=== PATIENT | female | born 1970 | race Caucasian/White ===

== ENCOUNTER 2018-08-08 18:44 | Emergency (ER) | payer OTHER ==
[2018-08-08 19:28] VITALS: BP 150/87
--- NOTE | 2018-08-08 19:37 | UC ---
Eye Complaint HPI - HPI Summary HPI Summary: Pt presents with c/o right eye pain that began 1 day ago and worsened at 0300 this morning. Pt wears extended wear contacts and has had this new pair in for 3 weeks. Pt woke and took contacts out and stated that pain worsened. Pt states that "last time this happened it was a scratch on my cornea". - History of Current Complaint Chief Complaint: UCEye Stated Complaint: RT EYE COMPLAINT Time Seen by Provider: 08/08/18 19:24 Hx Obtained From: Patient Hx Last Menstrual Period: [id number] ?: No Onset/Duration: Sudden Onset, Still Present Timing: Constant Severity Initially: Mild Severity Currently: Moderate Pain Intensity: 3 Character: Sharp Aggravating Factor(s): Light, Contact Lens Alleviating Factor(s): Nothing Associated Signs And Symptoms: Positive: Drainage (Clear) Related History: Other - corneal abrasion - Risk Factors Penetrating Injury Risk Factor: Negative Globe Rupture Risk Factors: Negative Acute Glaucoma Risk Factors: Negative Optic Artery Occlusion Risk Factors: Negative - Allergies/Home Medications Allergies/Adverse Reactions: Allergies Allergy/AdvReac Type Severity Reaction Status Date / Time No Known Allergies Allergy Verified 08/08/18 19:29 Home Medications: Home Medications FLUoxetine CAP* [Prozac CAP*] 60 mg PO DAILY 08/08/18 [History Confirmed ] PMH/Surg Hx/FS Hx/Imm Hx Previously Healthy: Yes - Surgical History Surgical History: Yes Surgery Procedure, Year, and Place: tubal - Family History Known Family History: Positive: Cardiac Disease - Social History Occupation: Employed Full-time Lives: With Family Alcohol Use: Occasionally Substance Use Type: None Smoking Status (MU): Never Smoked Tobacco Have You Smoked in the Last Year: No - Immunization History Vaccination Up to Date: No Review of Systems All Other Systems Reviewed And Are Negative: Yes Constitutional: Positive: Negative Skin: Positive: Negative Eyes: Positive: Blurred Vision, Drainage, Eye Redness, Photophobia ENT: Positive: Negative Respiratory: Positive: Negative Cardiovascular: Positive: Negative Gastrointestinal: Positive: Negative Genitourinary: Positive: Negative Motor: Positive: Negative Neurovascular: Positive: Negative Musculoskeletal: Positive: Negative Neurological: Positive: Negative Psychological: Positive: Negative Is Patient Immunocompromised?: No Physical Exam Triage Information Reviewed: Yes Appearance: Well-Appearing Vital Signs: Initial Vital Signs Temp 97.4 F 08/08/18 19:25 Pulse 69 08/08/18 19:25 Resp 16 08/08/18 19:25 BP 150/87 08/08/18 19:25 Pulse Ox 97 08/08/18 19:25 Vital Signs Reviewed: Yes Eye Exam: Other Eyes: Positive: Discharge - clear discharge, scleritis ENT Exam: Normal Dental Exam: Normal Neck exam: Normal Respiratory: Positive: No respiratory distress Musculoskeletal Exam: Normal Neurological Exam: Normal Psychological Exam: Normal Skin Exam: Normal Eye Complaint Course/Dx - Differential Dx/Diagnosis Differential Diagnosis/HQI/PQRI: Conjunctivitis, Corneal Abrasion Provider Diagnosis: Pain, eye, right, Scleritis Discharge - Sign-Out/Discharge Documenting (check all that apply): Patient Departure All imaging exams completed and their final reports reviewed: No Studies - Discharge Plan Condition: Stable Disposition: HOME Prescriptions: Ofloxacin 0.3% (Eye Drop) [Ocuflox OPTH 0.3% (Eye Drop)] 2 drop RIGHT EYE Q6H 7 Days #1 btl Patient Education Materials: Eye Pain (ED) Referrals: Manolo Preciado MD [Primary Care Provider] - If Needed Additional Instructions: Please follow up with your eye care provider as needed. - Billing Disposition and Condition Condition: STABLE Disposition: Home
== END 2018-08-08 19:43 | disposition home or self-care (01) ==
LOC: UCCORT 18:44
DX: H57.11 Ocular pain, right eye (principal); H15.001 Unspecified scleritis, right eye
CPT/HCPCS: 99212; G0463